=== PATIENT | female | born 1980 | race Caucasian/White ===

== ENCOUNTER → 2020-06-11 13:43 | Outpatient (BNVA) | payer OTHER, MEDICAID, SELFPAY | PROVIDERS: Visit Provider Psychiatry & Neurology Psychiatry | DX: F33.2 Major depressive disorder, recurrent severe without psychotic features (principal); F41.1 Generalized anxiety disorder; F43.12 Post-traumatic stress disorder, chronic | CPT/HCPCS: 99204 ==

== ENCOUNTER → 2020-07-09 07:55 | Outpatient (BNVA) | payer OTHER, MEDICAID, SELFPAY | PROVIDERS: Visit Provider Psychiatry & Neurology Psychiatry | DX: F43.12 Post-traumatic stress disorder, chronic (principal); F41.1 Generalized anxiety disorder; F33.2 Major depressive disorder, recurrent severe without psychotic features | CPT/HCPCS: 99213 ==

== ENCOUNTER → 2020-11-03 08:23 | Outpatient (BNVA) | payer OTHER, MEDICAID, SELFPAY | PROVIDERS: Visit Provider Psychiatry & Neurology Psychiatry | DX: F43.12 Post-traumatic stress disorder, chronic (principal); F41.1 Generalized anxiety disorder; F33.2 Major depressive disorder, recurrent severe without psychotic features; F12.20 Cannabis dependence, uncomplicated | CPT/HCPCS: 99214 ==